=== PATIENT | male | born 1990 | race Caucasian/White ===

== ENCOUNTER 2017-07-15 20:20 | Emergency (ER) | payer MEDICAID ==
[2017-07-15 20:51] VITALS: BP 141/93
[2017-07-15] MEDS ORDERED: predniSONE 10 MG Tab PO ONE (22:07)
--- NOTE | 2017-07-15 22:09 | EDM.PDOC ---
ED HPI GENERAL MEDICAL PROBLEM - General Chief Complaint: Neuro Symptoms/Deficits Stated Complaint: L SIDE FACE NOT WORKING Time Seen by Provider: 07/15/17 20:35 Source of Information: Reports: Patient History Limitations: Reports: No Limitations - History of Present Illness INITIAL COMMENTS - FREE TEXT/NARRATIVE: Patient is a 27 year old man who awoke yesterday at 07:00 with twitching in the left eyelid. Over the last 40 hours the left side of his face got weaker and now he cannot close the left eyelid without helping it. He has weakness and numbness and tingling in the left side of his face. No other complaints. He has a family history of strokes and that is why he came into the ED tonight. 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 Psychiatric History: Reports: Anxiety, Depression, Panic Attack Social & Family History - Family History Family Medical History: Noncontributory Cardiac: Reports: Hypertension, [place] Other Cardiac Family History: states that family has heart problems Neurological: Reports: CVA, Other (See Below) Other Neurological Family History: aunt Other Endocrine/Metabolic Family History: states that DM runs in the family - Tobacco Use Smoking Status *Q: Former Smoker Years of Tobacco use: 11 Packs/Tins Daily: 0.5 Used Tobacco, but Quit: Yes Month Tobacco Last Used: 06/28/2017 Second Hand Smoke Exposure: No - Caffeine Use Caffeine Use: Reports: Coffee, Energy Drinks, Soda - Recreational Drug Use Recreational Drug Use: No ED ROS GENERAL - Review of Systems Review Of Systems: See Below Constitutional: Reports: No Symptoms HEENT: Reports: Other (Left side of face is numb and weak.) Respiratory: Reports: No Symptoms Cardiovascular: Reports: No Symptoms Endocrine: Reports: No Symptoms GI/Abdominal: Reports: No Symptoms : Reports: No Symptoms Musculoskeletal: Reports: No Symptoms Skin: Reports: No Symptoms Neurological: Reports: Numbness, Tingling, Weakness, Other (Facial weakness) Psychiatric: Reports: No Symptoms Hematologic/Lymphatic: Reports: No Symptoms Immunologic: Reports: No Symptoms ED EXAM, NEURO - Physical Exam Exam: See Below Exam Limited By: No Limitations General Appearance: Alert, WD/WN, No Apparent Distress Eye Exam: Bilateral Eye: EOMI, Normal Fundi, Normal Inspection Ears: Normal External Exam, Normal Canal, Hearing Grossly Normal, Normal TMs Nose: Normal Inspection, Normal Mucosa, No Blood Throat/Mouth: Normal Inspection, Normal Lips, Normal Teeth, Normal Gums, Normal Oropharynx, Normal Voice, No Airway Compromise Head Exam: Other (Left facial tenderness, left eyelid is weak and not closing completely. Left face has a little droop.) Neck: Normal Inspection, Supple, Non-Tender, Full Range of Motion Respiratory/Chest: No Respiratory Distress, Lungs Clear, Normal Breath Sounds, No Accessory Muscle Use, Chest Non-Tender Cardiovascular: Normal Peripheral Pulses, Regular Rate, Rhythm, No Edema, No Gallop, No JVD, No Murmur, No Rub GI/Abdominal: Normal Bowel Sounds, Soft, Non-Tender, No Organomegaly, No Distention, No Abnormal Bruit, No Mass Neurological: Abnormal Sensation Back Exam: Normal Inspection, Full Range of Motion, NT Extremities: Normal Inspection, Normal Range of Motion, Non-Tender, No Pedal Edema, Normal Capillary Refill Psychiatric: Normal Affect, Normal Mood Skin Exam: Warm, Dry, Intact, Normal Color, No Rash Course - Vital Signs Text/Narrative:: Patient had an uneventful ED course. His labs and CT were normal. He was given 60 mg of oral prednisone and will be on a Medrol Dose Siva. He will follow up with his PCP next week. Last Recorded V/S: Last Vital Signs Temp 36.9 C 07/15/17 20:30 Pulse 73 07/15/17 20:30 Resp 16 07/15/17 20:30 BP 141/93 H 07/15/17 20:35 Pulse Ox 99 07/15/17 20:30 - Orders/Labs/Meds Orders: Active Orders 24 hr Category Date Time Status Head wo Cont [CT] Stat Exams 07/15/17 20:59 Taken predniSONE Med 07/16/17 09:00 Ordered 60 mg PO DAILY Medication Orders Prednisone (Prednisone) 60 mg PO DAILY AUBRIE Labs: Laboratory Tests 07/15/17 07/15/17 Range/Units 21:00 21:00 WBC 7.8 (4.5-12.0) X10-3/uL RBC 4.71 (4.30-5.75) x10(6)uL Hgb 14.5 (11.5-15.5) g/dL Hct 40.9 (30.0-51.3) % MCV 86.8 (80-96) fL MCH 30.7 (27.7-33.6) pg MCHC 35.4 (32.2-35.4) g/dL RDW 12.0 (11.5-15.5) % Plt Count 301 (125-369) X10(3)uL MPV 7.5 (7.4-10.4) fL Neut % (Auto) 58.1 (46-82) % Lymph % (Auto) 31.9 (13-37) % [place] % (Auto) 6.3 (4-12) % Eos % (Auto) 3 (1.0-5.0) % Baso % (Auto) 1 (0-2) % Neut # (Auto) 4.5 (1.6-8.3) # Lymph # (Auto) 2.5 (0.6-5.0) # [place] # (Auto) 0.5 (0.0-1.3) # Eos # (Auto) 0.2 (0.0-0.8) # Baso # (Auto) 0.1 (0.0-0.2) # Sodium 138 (135-145) mmol/L Potassium 4.1 (3.5-5.3) mmol/L Chloride 107 (100-110) mmol/L Carbon Dioxide 24 (23-29) mmol/L BUN 19 (5-20) mg/dL Creatinine 0.9 (0.6-1.3) mg/dL Est Cr Clr Drug Dosing 133.63 mL/min Estimated GFR (MDRD) > 60 (>60) BUN/Creatinine Ratio 21.1 H (9-20) Glucose 104 (80-116) mg/dL Calcium 9.1 (8.6-10.2) mg/dL Total Bilirubin 0.4 (0.1-1.3) mg/dL AST 15 (5-27) IU/L ALT 16 (14-26) IU/L Alkaline Phosphatase 70 (56-112) IU/L Total Protein 7.6 (6.0-8.0) g/dL Albumin 4.2 (3.5-5.2) g/dL Globulin 3.4 g/dL Albumin/Globulin Ratio 1.2 Meds: Medications Generic Name Dose Route Start Last Admin Trade Name Freq PRN Reason Stop Dose Admin Prednisone 60 mg 07/16/17 09:00 Prednisone PO DAILY AUBRIE Departure - Departure Time of Disposition: 22:24 Disposition: Home, Self-Care 01 Condition: Good Clinical Impression: Zhang's palsy, Left-sided Zhang's palsy - Discharge Information Prescriptions: methylPREDNISolone [Medrol] 4 mg PO ASDIRECTED #1 dosepk Referrals: PCP,None [Primary Care Provider] - - My Orders Last 24 Hours: My Active Orders 07/15/17 20:59 Head wo Cont [CT] Stat 07/16/17 09:00 predniSONE 60 mg PO DAILY - Assessment/Plan Last 24 Hours: My Active Orders 07/15/17 20:59 Head wo Cont [CT] Stat 07/16/17 09:00 predniSONE 60 mg PO DAILY
[2017-07-16] MEDS ORDERED: predniSONE 10 MG Tab PO SCH (09:00)
== END 2017-07-15 22:37 | disposition home or self-care (01) ==
LOC: FB.ED 20:20
DX: G51.0 Bell's palsy (principal); Z87.891 Personal history of nicotine dependence; I10 Essential (primary) hypertension; Z88.0 Allergy status to penicillin; Z88.1 Allergy status to other antibiotic agents
CPT/HCPCS: 36415; 70450; 80053; 85025; 99284; A9270

== ENCOUNTER 2018-05-11 13:59 | Emergency (ER) | payer MEDICAID ==
[2018-05-11] MEDS ORDERED: Sodium Chloride 0.9% 10 ML Syringe FLUSH PRN (14:28)
[2018-05-11] MEDS ORDERED: Sodium Chloride 0.9% 1,000 ML IV ONE (14:29)
[2018-05-11] MEDS ORDERED: Ketorolac 30 MG/ML SDV IVPUSH ONE (14:29)
[2018-05-11] MEDS ORDERED: Ondansetron 4 MG/2 ML SDV IVPUSH ONE (14:29)
--- NOTE | 2018-05-11 14:48 | EDM.PDOC ---
ED HPI GENERAL MEDICAL PROBLEM - General Chief Complaint: Flank Pain Stated Complaint: BACK PAIN Time Seen by Provider: 05/11/18 14:35 Source of Information: Reports: Patient History Limitations: Reports: No Limitations - History of Present Illness INITIAL COMMENTS - FREE TEXT/NARRATIVE: Presents with 3 days of left flank pain and N/V. No prior h/o kidney stones. Has a h/o chronic back pain. MRI L-spine on 04/05/18 showed multilevel degen changes, right subarticular disc extrusion L4-5 and L5-S1. Duration: Day(s): (3) Location: Reports: Abdomen, Back Severity: Moderate flank Pain Score (Numeric/FACES): 6 - Related Data Allergies Allergy/AdvReac Type Severity Reaction Status Date / Time amoxicillin Allergy Rash Verified 05/11/18 14:24 Penicillins Allergy Airway Verified 05/11/18 14:24 Tightness Home Meds: Home Meds Ciprofloxacin HCl [Cipro] 500 mg PO BID #14 tablet 05/11/18 [Rx] Naproxen 500 mg PO BID PRN #20 tablet 05/11/18 [Rx] Promethazine [Phenergan] 25 mg PO Q6H PRN #20 tab 05/11/18 [Rx] Tamsulosin [Tamsulosin 24 Hr] 0.4 mg PO DAILY #15 cap.er 05/11/18 [Rx] Past Medical History Cardiovascular History: Reports: Hypertension, Other (See Below) Other Cardiovascular History: undiagnosed HTN, has been told on multiple occasions to see MD about HTN but has not sought medical treatment for this. Genitourinary History: Denies: Renal Calculus Musculoskeletal History: Reports: Back Pain, Chronic Psychiatric History: Reports: Anxiety, Depression, Panic Attack Social & Family History - Family History Family Medical History: Noncontributory Cardiac: Reports: Hypertension, [place] Other Cardiac Family History: states that family has heart problems Neurological: Reports: CVA, Other (See Below) Other Neurological Family History: aunt Other Endocrine/Metabolic Family History: states that DM runs in the family - Caffeine Use Caffeine Use: Reports: Coffee, Energy Drinks, Soda ED ROS GENERAL - Review of Systems Review Of Systems: ROS reveals no pertinent complaints other than HPI. ED EXAM,LOWER BACK PAIN/INJURY - Physical Exam Exam: See Below Exam Limited By: No Limitations General Appearance: Alert, WD/WN, No Apparent Distress Ears: Normal External Exam Nose: Normal Inspection Throat/Mouth: No Airway Compromise Head: Atraumatic, Normocephalic Neck: Normal Inspection, Supple, Full Range of Motion Respiratory/Chest: No Respiratory Distress, Lungs Clear, Normal Breath Sounds Cardiovascular: Regular Rate, Rhythm, No Murmur GI/Abdominal: Soft, No Distention, Tender (LUQ) (Male) Exam: Deferred Rectal (Males) Exam: Deferred Back Exam: CVA Tenderness (L) Extremities: Normal Range of Motion Neurological: Alert, Normal Mood/Affect, Normal Gait Psychiatric: Normal Affect, Normal Mood Skin Exam: Warm, Dry, Intact, Normal Color, No Rash Course - Orders/Labs/Meds Orders: Active Orders 24 hr Category Date Time Status Abdomen Pelvis wo Cont [CT] Stat Exams 05/11/18 14:30 Taken Sodium Chloride 0.9% [Saline Flush] Med 05/11/18 14:28 Active 10 ml FLUSH ASDIRECTED PRN Saline Lock Insert [OM.PC] Routine Oth 05/11/18 14:28 Ordered Medication Orders Sodium Chloride (Saline Flush) 10 ml FLUSH ASDIRECTED PRN PRN Reason: Keep Vein Open Last Admin: 05/11/18 14:35 Dose: 10 ml Labs: Laboratory Tests 05/11/18 05/11/18 05/11/18 Range/Units 14:14 14:50 14:50 WBC 8.6 (4.5-12.0) X10-3/uL RBC 4.42 (4.30-5.75) x10(6)uL Hgb 13.2 (11.5-15.5) g/dL Hct 37.7 (30.0-51.3) % MCV 85.3 (80-96) fL MCH 29.8 (27.7-33.6) pg MCHC 34.9 (32.2-35.4) g/dL RDW 11.4 L (11.5-15.5) % Plt Count 291 (125-369) X10(3)uL MPV 7.5 (7.4-10.4) fL Neut % (Auto) 68.1 (46-82) % Lymph % (Auto) 19.0 (13-37) % [place] % (Auto) 11.0 (4-12) % Eos % (Auto) 2 (1.0-5.0) % Baso % (Auto) 0 (0-2) % Neut # (Auto) 6.0 (1.6-8.3) # Lymph # (Auto) 1.6 (0.6-5.0) # [place] # (Auto) 0.9 (0.0-1.3) # Eos # (Auto) 0.1 (0.0-0.8) # Baso # (Auto) 0.0 (0.0-0.2) # Sodium 138 (135-145) mmol/L Potassium 3.9 (3.5-5.3) mmol/L Chloride 104 (100-110) mmol/L Carbon Dioxide 29 (21-32) mmol/L BUN 17 (7-18) mg/dL Creatinine 1.1 (0.70-1.30) mg/dL Est Cr Clr Drug Dosing 108.39 mL/min Estimated GFR (MDRD) > 60 (>60) BUN/Creatinine Ratio 15.5 (9-20) Glucose 108 (80-116) mg/dL Calcium 9.0 (8.6-10.2) mg/dL Total Bilirubin 0.6 (0.1-1.3) mg/dL AST 15 (5-25) IU/L ALT 26 (12-36) U/L Alkaline Phosphatase 78 (56-112) IU/L Total Protein 6.8 (6.0-8.0) g/dL Albumin 3.1 L (3.5-5.2) g/dL Globulin 3.7 g/dL Albumin/Globulin Ratio 0.8 Urine Color Brown (YELLOW) Urine Appearance Cloudy (CLEAR) Urine pH 5.0 (5.0-6.5) Ur Specific [place] 1.025 (1.010-1.025) Urine Protein Trace (NEGATIVE) mg/dL Urine Glucose (UA) Normal (NEGATIVE) mg/dL Urine Ketones Negative (NEGATIVE) mg/dL Urine Occult Blood Large H (NEGATIVE) Urine Nitrite Negative (NEGATIVE) Urine Bilirubin Small H (NEGATIVE) Urine Urobilinogen 1 H (NEGATIVE) mg/dL Ur Leukocyte Esterase Negative (NEGATIVE) Urine RBC >100 H (0) Urine WBC 0-5 (0) Ur Squamous Epith Cells Occasional (NS,R,O) Urine Bacteria Moderate H (NS) Meds: Medications Generic Name Dose Route Start Last Admin Trade Name Shyam PRN Reason Stop Dose Admin Sodium Chloride 10 ml 05/11/18 14:28 05/11/18 14:35 Saline Flush FLUSH 10 ml ASDIRECTED PRN Administration Keep Vein Open Discontinued Medications Generic Name Dose Route Start Last Admin Trade Name Shyam PRN Reason Stop Dose Admin Ciprofloxacin 500 mg 05/11/18 15:19 05/11/18 15:37 Ciprofloxacin Hcl PO 05/11/18 15:20 500 mg ONETIME ONE Administration Sodium Chloride 1,000 mls @ 999 mls/hr 05/11/18 14:29 05/11/18 14:40 Normal Saline IV 05/11/18 15:29 999 mls/hr .BOLUS ONE Administration Ketorolac Tromethamine 30 mg 05/11/18 14:29 05/11/18 14:50 Toradol IVPUSH 05/11/18 14:30 30 mg ONETIME ONE Administration Ondansetron HCl 4 mg 05/11/18 14:29 05/11/18 14:45 Zofran IVPUSH 05/11/18 14:30 4 mg ONETIME ONE Administration Tamsulosin HCl 0.4 mg 05/11/18 15:19 05/11/18 15:37 Flomax PO 05/11/18 15:20 0.4 mg ONETIME ONE Administration - Radiology Interpretation Free Text/Narrative:: CT Abd/Pelvis w/o contrast: 5 mm distal left ureteral calculus with obstructive uropathy, enlarged prostate, thickening of urinary bladder wall. - Re-Assessments/Exams Free Text/Narrative Re-Assessment/Exam: 05/11/18 15:40 Syptoms improved after Toradol and Zofran Departure - Departure Time of Disposition: 15:42 Disposition: Home, Self-Care 01 Condition: Good Clinical Impression: UTI, Urinary tract infectious disease, Ureterolithiasis - Discharge Information *PRESCRIPTION DRUG MONITORING PROGRAM REVIEWED*: Yes *COPY OF PRESCRIPTION DRUG MONITORING REPORT IN PATIENT LIV: No Prescriptions: Ciprofloxacin HCl [Cipro] 500 mg PO BID #14 tablet Naproxen 500 mg PO BID PRN #20 tablet PRN Reason: Pain Promethazine [Phenergan] 25 mg PO Q6H PRN #20 tab PRN Reason: Nausea/Vomiting Tamsulosin [Tamsulosin 24 Hr] 0.4 mg PO DAILY #15 cap.er Instructions: Kidney Stones, [id number], Urinary Tract Infection, Adult Referrals: PCP,None [Primary Care Provider] - Shashi Gudnerson MD [Ordering Only Provider] - Forms: ED Department Discharge Additional Instructions: Fill prescriptions for Naproxen, Cipro, Phenergan and Flomax and take as directed. Drink plenty of fluids. Rest. Follow up with Urology in 2-3 days. Return to the ER if symptoms worsen. - My Orders Last 24 Hours: My Active Orders 05/11/18 14:28 Sodium Chloride 0.9% [Saline Flush] 10 ml FLUSH ASDIRECTED PRN Saline Lock Insert [OM.PC] Routine 05/11/18 14:30 Abdomen Pelvis wo Cont [CT] Stat - Assessment/Plan Last 24 Hours: My Active Orders 05/11/18 14:28 Sodium Chloride 0.9% [Saline Flush] 10 ml FLUSH ASDIRECTED PRN Saline Lock Insert [OM.PC] Routine 05/11/18 14:30 Abdomen Pelvis wo Cont [CT] Stat
[2018-05-11] MEDS ORDERED: Ciprofloxacin 500 MG Tab PO ONE (15:19)
[2018-05-11] MEDS ORDERED: Tamsulosin 0.4 MG Cap.ER PO ONE (15:19)
[2018-05-11 16:49] VITALS: BP 133/82
--- NOTE | 2018-05-12 09:45 | CT ---
INDICATION: Left flank pain. CT ABDOMEN AND PELVIS WITHOUT CONTRAST: Spiral 1.25 mm axial sections were obtained through the abdomen and pelvis without contrast with renal calculus protocol, including sagittal and coronal reconstructions, 05/11/2018. No comparison studies were available. Total exam DLP = 1,137.24 mGy-cm. Lower lung tanner and pleural spaces visualized appeared normal. The heart did not appear enlarged - no pericardial effusion was seen. There is pyelocaliectasis and ureterectasis at the left kidney with a 5.1 x 3.7 mm calculus lodged in the distal left ureter adjacent to the iliac vessels and approximately 6 cm from the ureterovesical junction. Degree of obstruction is moderate. Renal calcinosis is noted to a minimal degree, there being a 2.2 mm calculus in the mid pole of the left kidney and a 3.9 mm calculus in the mid pole of the right kidney. No right-sided obstructive uropathy was identified. No gross renal mass was seen. Urinary bladder wall was slightly thickened. The prostate was enlarged, measuring 50 x 46 x 37 mm in craniocaudad, transverse , and AP diameters. Some minimal calcifications are noted in the prostate. Phleboliths are noted in the lower pelvis. Urinary bladder wall was slightly thickened, which could be on the basis of cystitis but should be correlated clinically. The appendix appeared normal, visualized on coronal images #51 through #59 and axial images #213 through #239. No retroperitoneal masses were identified. Retroperitoneal lymphadenopathy is mild and likely nonspecific. What appears to be a diverticulum in the transverse colon with metallic density within it may represent a diverticulum with some medication lodged within it. Transverse diverticulosis is noted without definite evidence of diverticulitis. No evidence of free air or bowel obstruction was seen. The upper abdominal organs, including the liver, spleen, (there is noted a splenule along the inferomedial aspect anteriorly of the lower pole of the spleen), gallbladder, pancreas, and adrenals appeared normal. IMPRESSION: 1. Obstructive uropathy is moderate at the distal left ureter, due to a 5.1 x 3.7 mm calculus. 2. Renal calcinosis is minimal, as noted above. Report was called to Dr. Helton at approximately 1520 hours on 05/11/2018. [facility]
== END 2018-05-11 16:05 | disposition home or self-care (01) ==
LOC: FB.ED 13:59
DX: N39.0 Urinary tract infection, site not specified (principal); N20.1 Calculus of ureter; N13.9 Obstructive and reflux uropathy, unspecified; I10 Essential (primary) hypertension; Z88.0 Allergy status to penicillin; Z88.1 Allergy status to other antibiotic agents; Z79.899 Other long term (current) drug therapy; F17.290 Nicotine dependence, other tobacco product, uncomplicated
CPT/HCPCS: 36415; 74176; 80053; 81001; 85025; 96361; 96374; 96375; 99284; A9270; J1885; J2405; J7030; J7050